=== PATIENT | male | born 1950 | race African-American/Black ===

== ENCOUNTER 2021-09-02 07:23 | Inpatient (IN) | payer MEDICARE, OTHER ==
[~2021-09-02] VITALS: Ht 175.3 cm; Wt 93.7 kg
[2021-09-02 09:00] LABS: BASOPHILS % 0.2 % (0.0-2.0); EOSINOPHILS % 0.1 % (0.0-5.0); HEMATOCRIT. 42.2 % (42.0-52.0); HEMOGLOBIN. 13.3 g/dL (14.0-18.0); LYMPHOCYTES % 11.2 % (20.0-50.0); MEAN CORPUSCULAR HEMOGLOBIN 27.4 pg (28.0-32.0); MEAN CORPUSCULAR VOLUME 87.3 fL (80.0-94.0); NEUTROPHILS % 80.5 % (40.0-76.0); PLATELET 218 x1000/uL (130-400); RED BLOOD CELL COUNT 4.84 mill/uL (4.7-6.1); RED CELL DISTRIBUTION WIDTH 12.6 % (11.6-14.6)
[2021-09-02 09:22] LABS: CHLORIDE 93 mEq/L (98-107)
[2021-09-02] MEDS ORDERED: ASPIRIN 81MG TABLET PO ONE (10:00)
[2021-09-02] MEDS ORDERED: SODIUM CHLORIDE 0.9% 1,000 ML IV ONE (10:00)
[2021-09-02] MEDS ORDERED: DEXTROSE 50% WATER 50ML SYRINGE IV PRN (14:00)
[2021-09-02] MEDS ORDERED: DOCUSATE SODIUM 100MG CAPSULE PO PRN (14:00)
[2021-09-02] MEDS ORDERED: CLONIDINE 0.1MG TABLET PO PRN (14:00)
[2021-09-02] MEDS ORDERED: IPRATROPIUM/ALBUTEROL 0.5-3(2.5)MG/3ML NEB NEB PRN (14:00)
[2021-09-02] MEDS ORDERED: NITROGLYCERIN 0.4MG TABLET SL SL PRN (14:00)
[2021-09-02] MEDS ORDERED: GUAIFENESIN 200MG/10ML SUGAR FREE UDC PO PRN (14:00)
[2021-09-02] MEDS ORDERED: MAGNESIUM/ALUMINUM HYDROXIDE/SIMETHICONE 30ML UDC PO PRN (14:00)
[2021-09-02] MEDS ORDERED: ONDANSETRON HCL 4MG/2ML INJ IV PRN (14:00)
[2021-09-02] MEDS ORDERED: ACETAMINOPHEN 325MG TABLET PO PRN ×2 (14:00)
[2021-09-02] MEDS: AMLODIPINE 10MG TABLET PO SCH (14:33)
[2021-09-02 14:38] LABS: CLARITY URINE CLEAR (CLEAR); COLOR URINE YELLOW (YELLOW); KETONES URINE 3+ (NEGATIVE); LEUKOCYTE ESTERASE URINE NEGATIVE (NEGATIVE); NITRITE URINE NEGATIVE (NEGATIVE); OCCULT BLOOD URINE NEGATIVE (NEGATIVE); PROTEIN URINE NEGATIVE (NEGATIVE); SPECIFIC GRAVITY URINE 1.027 (1.005-1.030); UROBILINOGEN URINE 0.2 E.U./dL (0.2-1.0)
[2021-09-02 14:42] LABS: FOLIC ACID (FOLATE) SERUM >20 ng/mL ng/mL (>5.38)
[2021-09-02 14:52] LABS: VITAMIN B12 SERUM 619 pg/mL (211-911)
[2021-09-02 14:56] LABS: CREATINE KINASE MB FRACTION 24.2 ng/mL (0.5-3.6)
[2021-09-02 15:14] LABS: *BARBITURATES SCREEN URINE NEGATIVE (NEGATIVE); *BENZODIAZEPINES SCREEN URINE NEGATIVE (NEGATIVE); *COCAINE SCREEN URINE NEGATIVE (NEGATIVE)
[2021-09-02 15:15] LABS: *AMPHETAMINES SCREEN URINE NEGATIVE (NEGATIVE); CANNABINOID URINE SCREEN NEGATIVE (NEGATIVE); METHADONE URINE SCREEN NEGATIVE (NEGATIVE); OPIATES URINE SCREEN NEGATIVE (NEGATIVE); PHENCYCLIDINE URINE SCREEN NEGATIVE (NEGATIVE)
[2021-09-02] MEDS: ENOXAPARIN 40MG/0.4ML SYR SUBCUT SCH (16:15)
[2021-09-02] MEDS: BLOOD SUGAR DIAGNOSTIC STRIP TEST SCH (17:12)
[2021-09-02] MEDS: INSULIN LISPRO 100 UNITS/ML SUBCUT SCH ×2 (18:41→21:09)
[2021-09-02] MEDS ORDERED: ZOLPIDEM TARTRATE 5MG TABLET PO PRN (21:00)
[2021-09-02] MEDS: FAMOTIDINE 20MG TABLET PO SCH (21:07)
[2021-09-02] MEDS: LISINOPRIL 20MG TABLET PO SCH (21:07)
[2021-09-02] MEDS: ASCORBIC ACID 500 MG TABLET PO SCH (21:09)
[2021-09-02] MEDS: INSULIN GLARGINE UD 100 UNITS/ML SYR SUBCUT SCH (22:19)
[2021-09-03] VITALS (7 sets, daily range): BP systolic 96–127; BP diastolic 50–64
[2021-09-03 00:59] LABS: CREATINE KINASE MB FRACTION 15.6 ng/mL (0.5-3.6)
[2021-09-03] MEDS: BLOOD SUGAR DIAGNOSTIC STRIP TEST SCH ×4 (05:54→21:36)
[2021-09-03] MEDS: INSULIN LISPRO 100 UNITS/ML SUBCUT SCH ×4 (06:10→20:38)
[2021-09-03 07:29] LABS: BASOPHILS % 0.3 % (0.0-2.0); EOSINOPHILS % 0.3 % (0.0-5.0); HEMATOCRIT. 37.3 % (42.0-52.0); HEMOGLOBIN. 12.3 g/dL (14.0-18.0); LYMPHOCYTES % 17.1 % (20.0-50.0); MEAN CORPUSCULAR HEMOGLOBIN 28.1 pg (28.0-32.0); MEAN CORPUSCULAR VOLUME 85.5 fL (80.0-94.0); MEAN PLATELET VOLUME 9.5 fl (7.4-10.4); MONOCYTES % 8.9 % (2.0-8.0); NEUTROPHILS % 73.4 % (40.0-76.0); PLATELET 214 x1000/uL (130-400); RED BLOOD CELL COUNT 4.37 mill/uL (4.7-6.1); RED CELL DISTRIBUTION WIDTH 12.4 % (11.6-14.6)
[2021-09-03 07:36] LABS: CHLORIDE 99 mEq/L (98-107)
[2021-09-03] MEDS: ZINC SULFATE 220 MG ( 50 ) CAPSULE PO SCH (08:40)
[2021-09-03] MEDS: ASPIRIN 325MG EC TABLET PO SCH (08:40)
[2021-09-03] MEDS: ASCORBIC ACID 500 MG TABLET PO SCH ×2 (08:40→20:39)
[2021-09-03] MEDS: CHOLECALCIFEROL (D3) 1000 UNIT TABLET PO SCH (08:40)
[2021-09-03] MEDS: LISINOPRIL 20MG TABLET PO SCH ×2 (08:41→20:43)
[2021-09-03] MEDS: AMLODIPINE 10MG TABLET PO SCH (08:41)
[2021-09-03] MEDS: FAMOTIDINE 20MG TABLET PO SCH ×2 (08:42→20:39)
[2021-09-03] MEDS ORDERED: PNEUMOCOCCAL 23-VAL P-SAC VAC 0.5 ML IM ONE (12:00)
[2021-09-03] MEDS: ENOXAPARIN 40MG/0.4ML SYR SUBCUT SCH (15:24)
[2021-09-04] VITALS: BP 135/72
[2021-09-04] MEDS: INSULIN GLARGINE UD 100 UNITS/ML SYR SUBCUT SCH ×2 (01:24→23:06)
[2021-09-04 04:00] VITALS: BP 142/77
[2021-09-04] MEDS: INSULIN LISPRO 100 UNITS/ML SUBCUT SCH ×4 (06:34→21:04)
[2021-09-04] MEDS: BLOOD SUGAR DIAGNOSTIC STRIP TEST SCH ×4 (06:38→20:24)
[2021-09-04 08:00] VITALS: BP 133/86
[2021-09-04] MEDS: FAMOTIDINE 20MG TABLET PO SCH ×2 (10:01→21:02)
[2021-09-04] MEDS: AMLODIPINE 10MG TABLET PO SCH (10:01)
[2021-09-04] MEDS: CHOLECALCIFEROL (D3) 1000 UNIT TABLET PO SCH (10:02)
[2021-09-04] MEDS: ZINC SULFATE 220 MG ( 50 ) CAPSULE PO SCH (10:02)
[2021-09-04] MEDS: LISINOPRIL 20MG TABLET PO SCH ×2 (10:02→21:02)
[2021-09-04] MEDS: ASPIRIN 325MG EC TABLET PO SCH (10:02)
[2021-09-04] MEDS: ASCORBIC ACID 500 MG TABLET PO SCH ×2 (10:02→21:02)
[2021-09-04 12:00] VITALS: BP 127/77
[2021-09-04] MEDS: ENOXAPARIN 40MG/0.4ML SYR SUBCUT SCH (14:35)
[2021-09-04 16:00] VITALS: BP 135/74
[2021-09-04 20:00] VITALS: BP 117/64
[2021-09-05] VITALS: BP 119/62
[2021-09-05 04:00] VITALS: BP 135/74
[2021-09-05] MEDS: BLOOD SUGAR DIAGNOSTIC STRIP TEST SCH ×4 (06:03→21:41)
[2021-09-05] MEDS: INSULIN LISPRO 100 UNITS/ML SUBCUT SCH ×4 (06:21→21:41)
[2021-09-05 08:00] VITALS: BP 132/77
[2021-09-05] MEDS: ASCORBIC ACID 500 MG TABLET PO SCH ×2 (09:00→21:40)
[2021-09-05] MEDS: ZINC SULFATE 220 MG ( 50 ) CAPSULE PO SCH (09:09)
[2021-09-05] MEDS: LISINOPRIL 20MG TABLET PO SCH ×2 (09:09→21:40)
[2021-09-05] MEDS: CHOLECALCIFEROL (D3) 1000 UNIT TABLET PO SCH (09:09)
[2021-09-05] MEDS: FAMOTIDINE 20MG TABLET PO SCH ×2 (09:10→21:40)
[2021-09-05] MEDS: AMLODIPINE 10MG TABLET PO SCH (09:10)
[2021-09-05] MEDS: ASPIRIN 325MG EC TABLET PO SCH (09:10)
[2021-09-05 12:00] VITALS: BP 116/95
[2021-09-05 16:00] VITALS: BP 146/74
[2021-09-05] MEDS: ENOXAPARIN 40MG/0.4ML SYR SUBCUT SCH (16:28)
[2021-09-05 20:00] VITALS: BP 134/69
[2021-09-05] MEDS: INSULIN GLARGINE UD 100 UNITS/ML SYR SUBCUT SCH (21:41)
[2021-09-06] VITALS: BP 135/72
[2021-09-06 04:00] VITALS: BP 123/62
[2021-09-06] MEDS: BLOOD SUGAR DIAGNOSTIC STRIP TEST SCH ×2 (05:54→11:40)
[2021-09-06] MEDS: INSULIN LISPRO 100 UNITS/ML SUBCUT SCH ×2 (05:54→13:09)
[2021-09-06 08:00] VITALS: BP 165/91
[2021-09-06] MEDS: ASPIRIN 325MG EC TABLET PO SCH (08:54)
[2021-09-06] MEDS: AMLODIPINE 10MG TABLET PO SCH (08:55)
[2021-09-06] MEDS: CHOLECALCIFEROL (D3) 1000 UNIT TABLET PO SCH (08:56)
[2021-09-06] MEDS: FAMOTIDINE 20MG TABLET PO SCH (08:56)
[2021-09-06] MEDS: ASCORBIC ACID 500 MG TABLET PO SCH (08:56)
[2021-09-06] MEDS: ZINC SULFATE 220 MG ( 50 ) CAPSULE PO SCH (08:56)
[2021-09-06] MEDS: LISINOPRIL 20MG TABLET PO SCH (08:56)
[2021-09-06 11:39] VITALS: BP 138/91
[2021-09-06 12:00] VITALS: BP 131/91
[2021-09-06] MEDS ORDERED: INSU100I28 SQ (12:37)
[2021-09-06] MEDS ORDERED: INSLIS SUBCUT (12:39)
[2021-09-06] MEDS ORDERED: METF-414 MT (12:41)
== END 2021-09-06 14:50 | disposition home or self-care (01) | DRG 280 ==
LOC: ER 07:23 → 7EST 12:28 → ENRESERV 22:02
PROVIDERS: ADMIT Internal Medicine; ATTEND Internal Medicine
DX: I21.4 Non-ST elevation (NSTEMI) myocardial infarction (principal); E11.00 Type 2 diabetes mellitus with hyperosmolarity without nonketotic hyperglycemic-hyperosmolar coma (NKHHC); E87.1 Hypo-osmolality and hyponatremia; M62.82 Rhabdomyolysis; E66.9 Obesity, unspecified; E78.00 Pure hypercholesterolemia, unspecified; Z20.822 Contact with and (suspected) exposure to COVID-19; I10 Essential (primary) hypertension; D72.829 Elevated white blood cell count, unspecified; Z79.4 Long term (current) use of insulin; Z68.30 Body mass index [BMI] 30.0-30.9, adult
CPT/HCPCS: 36415; 71045; 80053; 80305; 81003; 82550; 82553; 82607; 82746; 82962; 83540; 83550; 83735; 83930; 84100; 84443; 84484; 85025; 90732; 93005; 93306; 93970; 97166; 99291; J1650; J1815; J7030